=== PATIENT | female | born 1995 | race Two or more races ===

== ENCOUNTER 2017-02-07 09:37 | Emergency (ER) | payer OTHER ==
[~2017-02-07 09:37] MED LIST: ACET-704 PO; IBUP-1060 PO; LABE100T3; RANI300T3 PO
[2017-02-07 10:04] VITALS: BP 124/68
[2017-02-07] MEDS ORDERED: NAPR500T PO (10:06)
--- NOTE | 2017-02-07 10:07 | PHYS DOC ---
Past Medical History Past Medical History: Hypertension Additional Past Medical Histor: hypertension "while I was , but none now" Past Surgical History: Cholecystectomy, Tonsillectomy Alcohol Use: Occasionally Drug Use: None Adult General Chief Complaint Chief Complaint: HAND PROBLEM HPI HPI Patient is a 21 year old female presents to the emergency department with a one -month history of right wrist pain. She notes a small bump on the dorsal aspect of the wrist. She has no known injury. Denies loss of function or radiation of pain. Review of Systems Review of Systems Constitutional: Denies fever or chills [] Eyes: Denies change in visual acuity, redness, or eye pain [] HENT: Denies nasal congestion or sore throat [] Respiratory: Denies cough or shortness of breath [] Cardiovascular: No additional information not addressed in HPI [] GI: Denies abdominal pain, nausea, vomiting, bloody stools or diarrhea [] : Denies dysuria or hematuria [] Musculoskeletal: right wrist pain Integument: Denies rash or skin lesions [] Neurologic: Denies headache, focal weakness or sensory changes [] Endocrine: Denies polyuria or polydipsia [] Allergies Allergies Allergies Coded Allergies Type Severity Reaction Last Updated Verified No Known Drug Allergies 10/02/14 No Physical Exam Physical Exam Constitutional: Well developed, well nourished, no acute distress, non-toxic appearance. [] Skin: Warm, dry, no erythema, no rash. [] Extremities: Right wrist exam, ganglion cyst dorsal aspect. There is no erythema. No swelling. Right hand and right elbow exam unremarkable. Neurovascular intact distally. Muscle strength 5 over 5. EKG EKG [] Radiology/Procedures Radiology/Procedures [] Course & Med Decision Making Course & Med Decision Making Pertinent Labs and Imaging studies reviewed. (See chart for details) [] Dragon Disclaimer Dragon Disclaimer This electronic medical record was generated, in whole or in part, using a voice recognition dictation system. Departure Departure Impression: Primary Impression: Ganglion cyst of dorsum of right wrist Disposition: HOME, SELF-CARE Condition: STABLE Referrals: NO PCP (PCP) NEEL GARCIA MD Patient Instructions: Ganglion Cyst Scripts Naproxen (NAPROSYN) 500 Mg Tablet 1 TAB PO BID Y for PAIN, #20 TAB 1 Refill Prov: JAYLEN SEVILLA MATHEMATICAL STATISTICIAN 02/07/17 JAYLEN SEVILLA APRN Feb 07, 2017 10:07
== END 2017-02-07 10:14 | disposition home or self-care (01) ==
LOC: ER 09:37
DX: M67.431 Ganglion, right wrist (principal); I10 Essential (primary) hypertension; Z90.49 Acquired absence of other specified parts of digestive tract
CPT/HCPCS: 99282

== ENCOUNTER 2017-02-25 13:31 | Emergency (ER) | payer OTHER ==
[~2017-02-25] VITALS: Ht 147.3 cm; Wt 83.1 kg
[~2017-02-25 13:31] MED LIST changes: +NAPR500T PO
[2017-02-25 13:59] VITALS: BP 143/79
[2017-02-25] MEDS ORDERED: HYDROcodone/APAP 5/325MG 1 TAB TABLET PO ONE (14:30)
[2017-02-25] MEDS ORDERED: LIDOCAINE 2% TOPICAL JELLY 30GM TUBE. TP ONE (14:30)
[2017-02-25] MEDS ORDERED: TRAM-48 PO (14:42)
--- NOTE | 2017-02-25 14:42 | PHYS DOC ---
Past Medical History Past Medical History: Hypertension, Other Additional Past Medical Histor: hypertension "while I was , but none now" Past Surgical History: Cholecystectomy, Tonsillectomy Alcohol Use: Occasionally Drug Use: None Adult General Chief Complaint Chief Complaint: SEXUALLY TRANSMITTED DISEASE HPI HPI Patient is a 22 year old female who presents with pain on the labia that began 4 days ago after being diagnosed with herpes. Patient states she is currently on acyclovir and miconazole inserts. Patient states she would like something for pain. She states the pain is unbearable. Patient states her doctor did lab work but it will take 2 weeks before she gets results. Patient denies any new sexual contacts/concerns for STDs Review of Systems Review of Systems Constitutional: Denies fever or chills [] Eyes: Denies change in visual acuity, redness, or eye pain [] Musculoskeletal: Denies back pain or joint pain [] Integument: Vaginal pain due to vaginal herpes Neurologic: Denies headache, focal weakness or sensory changes [] Endocrine: Denies polyuria or polydipsia [] Current Medications Current Medications Current Medications Medications (Trade) Dose Ordered Sig/[facility] Start Time Stop Time Status Last Admin Dose Admin Acetaminophen/ Hydrocodone Bitart (Lortab 5/325) 1 tab 1X ONCE 02/25/17 14:30 02/25/17 14:31 DC 02/25/17 14:32 1 TAB Lidocaine HCl (Xylocaine 2% Topical 30gm Tube) 1 madina 1X ONCE 02/25/17 14:30 02/25/17 14:31 DC Allergies Allergies Allergies Coded Allergies Type Severity Reaction Last Updated Verified No Known Drug Allergies 10/02/14 No Physical Exam Physical Exam Constitutional: Well developed, well nourished, no acute distress, non-toxic appearance. [] HENT: Normocephalic, atraumatic, bilateral external ears normal, oropharynx moist, no oral exudates, nose normal. [] Skin: External bilateral labia with multiple open wounds suspicious of herpes. Back: No tenderness, no CVA tenderness. [] Extremities: No tenderness, no cyanosis, no clubbing, ROM intact, no edema. [] Neurologic: Alert and oriented X 3, normal motor function, normal sensory function, no focal deficits noted. [] Psychologic: Affect normal, judgement normal, mood normal. [] Current Patient Data Vital Signs Vital Signs Date Time Temp Pulse Resp B/P (MAP) Pulse Ox O2 Delivery O2 Flow Rate FiO2 02/25/17 14:32 18 Room Air 02/25/17 13:59 98.0 104 99 98.0 Lab Values Laboratory Tests Test 02/25/17 13:08 POC Urine HCG, Qualitative Hcg negative (Negative) EKG EKG [] Radiology/Procedures Radiology/Procedures [] Course & Med Decision Making Course & Med Decision Making Pertinent Labs and Imaging studies reviewed. (See chart for details) Patient is in the ED with pain due to vaginal herpes. She is currently not on acyclovir. She is also on miconazole inserts. We gave her lidocaine cream to be applied externally to the area. Given a prescription for Ultram as needed for pain. She is to follow-up with her own doctor in 1-2 weeks. Dragon Disclaimer Dragon Disclaimer This electronic medical record was generated, in whole or in part, using a voice recognition dictation system. Departure Departure Impression: Primary Impression: Herpes simplex virus (HSV) infection of vagina Disposition: HOME, SELF-CARE Condition: STABLE Referrals: NO PCP (PCP) Follow-up with your doctor in 1-2 weeks Patient Instructions: Genital Herpes Additional Instructions: You were seen for vaginal herpes. Continue using the medication you got from your primary care doctor/clinic. Apply the provided cream to the vaginal area every 3 hours as needed for pain. Take the prescribed pain medicines as needed. Scripts Tramadol Hcl (ULTRAM) 50 Mg Tablet 1 TAB PO Q6HRS, #30 TAB Prov: NUZHAT DEMPSEY APRN 02/25/17 NUZHAT DEMPSEY APRN Feb 25, 2017 14:42
== END 2017-02-25 15:05 | disposition home or self-care (01) ==
LOC: ER 13:31
DX: B00.1 Herpesviral vesicular dermatitis (principal); N76.0 Acute vaginitis; I10 Essential (primary) hypertension; Z90.49 Acquired absence of other specified parts of digestive tract
CPT/HCPCS: 81025; 99283

== ENCOUNTER 2018-09-12 16:30 | Emergency (ER) | payer OTHER ==
[~2018-09-12] VITALS: Ht 154.9 cm; Wt 88.5 kg
[~2018-09-12 16:30] MED LIST changes: -LABE100T3; +LABE100T5; +NAPR-683 PO; -NAPR500T PO; +TRAM-48 PO
[2018-09-12 17:20] LABS: BILIRUBIN,URINE NEGATIVE (NEG); CLARITY,URINE CLEAR; COLOR,URINE YELLOW; NITRITE,URINE NEGATIVE (NEG); PROTEIN,URINE NEGATIVE (NEG-TRACE); UROBILINOGEN,URINE 0.2 mg/dL (0.2 mg/dL)
[2018-09-12 17:26] LABS: RBC,URINE RARE /HPF (0-2)
[2018-09-12 17:27] LABS: BACTERIA,URINE MANY /HPF (0-FEW); SQUAMOUS EPITHELIAL CELL,UR MANY /LPF; WBC,URINE OCC /HPF (0-4)
[2018-09-12 17:30] LABS: BASO % 0 % (0-3); EOS % 0 % (0-3); HEMATOCRIT 39.8 % (36.0-47.0); HEMOGLOBIN 13.1 g/dL (12.0-15.5); LYMPH # 0.3 x10^3/uL (1.0-4.8); LYMPH % 6 % (24-48); MEAN CORPUSCULAR HEMOGLOBIN 27 pg (25-35); MEAN CORPUSCULAR HGB CONC 33 g/dL (31-37); MEAN CORPUSCULAR VOLUME 82 fL (79-100); MONO # 0.2 x10^3/uL (0.0-1.1); MONO % 4 % (0-9); NEUT # 5.1 x10^3uL (1.8-7.7); NEUT % 90 % (31-73); PLATELET COUNT 147 x10^3/uL (140-400); RED BLOOD COUNT 4.86 x10^6/uL (3.50-5.40); RED CELL DISTRIBUTION WIDTH 14.3 % (11.5-14.5); WHITE BLOOD COUNT 5.6 x10^3/uL (4.0-11.0)
[2018-09-12] MEDS ORDERED: ONDANSETRON PF 4 MG/2 ML VIAL. IV ONE (17:30)
[2018-09-12] MEDS ORDERED: fentaNYL PF VIAL 100 MCG/2 ML VIAL IV ONE (17:30)
[2018-09-12] MEDS ORDERED: IV NORMAL SALINE 1000ML BAG 1,000 ML IV ONE (17:30)
--- NOTE | 2018-09-12 17:33 | PHYS DOC ---
Past Medical History Past Medical History: Hypertension, Other Additional Past Medical Histor: hypertension "while I was , but none now" (KARSTEN REBOLLEDO APRN) Past Surgical History: Cholecystectomy, Tonsillectomy (KARSTEN REBOLLEDO APRN) Alcohol Use: Occasionally Drug Use: None (KARSTEN REBOLLEDO APRN) Adult General Chief Complaint Chief Complaint: ABDOMINAL PAIN HPI HPI Patient is a 23 year old female who presents with a 4:30 this morning she was awakened with dull umbilical abdominal pain that later in the day progressed to dull pain that starting to go to the right side. Patient states she is also having nausea and vomiting and cold chills. Patient states she took Aleve at 1300 today. (KARSTEN REBOLLEDO APRN) Review of Systems Review of Systems Constitutional: fever or chills [] Eyes: Denies change in visual acuity, redness, or eye pain [] HENT: Denies nasal congestion or sore throat [] Respiratory: Denies cough or shortness of breath [] Cardiovascular: No additional information not addressed in HPI [] GI: Umbilical abdominal pain, nausea, vomiting, denies bloody stools or diarrhea [] : Denies dysuria or hematuria [] Musculoskeletal: Denies back pain or joint pain [] Integument: Denies rash or skin lesions [] Neurologic: Denies headache, focal weakness or sensory changes [] All other systems were reviewed and found to be within normal limits, except as documented in this note. (KARSTEN REBOLLEDO APRN) Current Medications Current Medications Current Medications Medications (Trade) Dose Ordered Sig/[facility] Start Time Stop Time Status Last Admin Dose Admin Fentanyl Citrate (Fentanyl 2ml Vial) 50 mcg 1X ONCE 09/12/18 17:30 09/12/18 17:31 DC 09/12/18 17:33 50 MCG Iohexol (Omnipaque 240 Mg/ml) 30 ml 1X ONCE 09/12/18 17:45 09/12/18 17:46 DC Iohexol (Omnipaque 300 Mg/ml) 75 ml 1X ONCE 09/12/18 17:45 09/12/18 17:46 DC 09/12/18 18:12 75 ML Ondansetron HCl (Zofran) 4 mg 1X ONCE 09/12/18 17:30 1/30/19 17:31 DC 09/12/18 17:34 4 MG Sodium Chloride 1,000 ml @ 1,000 mls/hr 1X ONCE 09/12/18 17:30 09/12/18 18:29 (JAMES GRAHAMFRANCIS Mike APRN) Allergies Allergies Allergies Coded Allergies Type Severity Reaction Last Updated Verified No Known Drug Allergies 10/02/14 No (JAMES GRAHAMFRANCIS Mike APRN) Physical Exam Physical Exam Constitutional: Well developed, well nourished, no acute distress, non-toxic appearance. [] HENT: Normocephalic, atraumatic, bilateral external ears normal, oropharynx moist, no oral exudates, nose normal. [] Eyes: PERRLA, EOMI, conjunctiva normal, no discharge. [] Neck: Normal range of motion, no tenderness, supple, no stridor. [] Cardiovascular:Heart rate regular rhythm, no murmur [] Lungs & Thorax: Bilateral breath sounds clear to auscultation [] Abdomen: Bowel sounds normal, soft, umbilical and right lower quadrant tenderness, no masses, no pulsatile masses. [] Skin: Warm, dry, no erythema, no rash. [] Back: No tenderness, no CVA tenderness. [] Extremities: No tenderness, no cyanosis, no clubbing, ROM intact, no edema. [] Neurologic: Alert and oriented X 3, normal motor function, normal sensory function, no focal deficits noted. [] Psychologic: Affect normal, judgement normal, mood normal. [] (KARSTEN REBOLLEDO APRN) Current Patient Data Vital Signs Vital Signs Date Time Temp Pulse Resp B/P (MAP) Pulse Ox O2 Delivery O2 Flow Rate FiO2 09/12/18 17:01 100.1 128 20 134/58 (83) 98 Room Air 100.1 (MARY KATE GRAHAM Rashid WOOD) Lab Values Laboratory Tests Test 09/12/18 16:39 09/12/18 16:43 09/12/18 17:15 Urine Collection Type Unknown Urine Color Yellow Urine Clarity Clear Urine pH 6.0 Urine Specific [place] >=1.030 Urine Protein Negative mg/dL (NEG-TRACE) Urine Glucose (UA) Negative mg/dL (NEG) Urine Ketones (Stick) Negative mg/dL (NEG) Urine Blood Negative (NEG) Urine Nitrite Negative (NEG) Urine Bilirubin Negative (NEG) Urine Urobilinogen Dipstick 0.2 mg/dL (0.2 mg/dL) Urine Leukocyte Esterase Negative (NEG) Urine RBC Rare /HPF (0-2) Urine WBC Occ /HPF (0-4) Urine Squamous Epithelial Cells Many /LPF Urine Bacteria Many /HPF (0-FEW) Urine Mucus Marked /LPF POC Urine HCG, Qualitative Hcg negative (Negative) White Blood Count 5.6 x10^3/uL (4.0-11.0) Red Blood Count 4.86 x10^6/uL (3.50-5.40) Hemoglobin 13.1 g/dL (12.0-15.5) Hematocrit 39.8 % (36.0-47.0) Mean Corpuscular Volume 82 fL (79-100) Mean Corpuscular Hemoglobin 27 pg (25-35) Mean Corpuscular Hemoglobin Concent 33 g/dL (31-37) Red Cell Distribution Width 14.3 % (11.5-14.5) Platelet Count 147 x10^3/uL (140-400) Neutrophils (%) (Auto) 90 % (31-73) H Lymphocytes (%) (Auto) 6 % (24-48) L Monocytes (%) (Auto) 4 % (0-9) Eosinophils (%) (Auto) 0 % (0-3) Basophils (%) (Auto) 0 % (0-3) Neutrophils # (Auto) 5.1 x10^3uL (1.8-7.7) Lymphocytes # (Auto) 0.3 x10^3/uL (1.0-4.8) L Monocytes # (Auto) 0.2 x10^3/uL (0.0-1.1) Eosinophils # (Auto) 0.0 x10^3/uL (0.0-0.7) Basophils # (Auto) 0.0 x10^3/uL (0.0-0.2) Segmented Neutrophils % 89 % (35-66) H Lymphocytes % 10 % (24-48) L Monocytes % 1 % (0-10) Toxic Granulation Slight Toxic Vacuolation Slight Platelet Estimate Adequate (ADEQUATE) Sodium Level 141 mmol/L (136-145) Potassium Level 4.0 mmol/L (3.5-5.1) Chloride Level 102 mmol/L (98-107) Carbon Dioxide Level 27 mmol/L (21-32) Anion Gap 12 (6-14) Blood Urea Nitrogen 13 mg/dL (7-20) Creatinine 0.7 mg/dL (0.6-1.0) Estimated GFR (Cockcroft-Gault) 103.7 BUN/Creatinine Ratio 19 (6-20) Glucose Level 102 mg/dL (70-99) H Calcium Level 9.0 mg/dL (8.5-10.1) Total Bilirubin 0.4 mg/dL (0.2-1.0) Aspartate Amino Transferase (AST) 20 U/L (15-37) Alanine Aminotransferase (ALT) 49 U/L (14-59) Alkaline Phosphatase 126 U/L (46-116) H Total Protein 7.8 g/dL (6.4-8.2) Albumin 3.8 g/dL (3.4-5.0) Albumin/Globulin Ratio 1.0 (1.0-1.7) Laboratory Tests 09/12/18 17:15 Laboratory Tests 09/12/18 17:15 (MARY KATE GRAHAM APRN) EKG EKG [] (KRASTEN REBOLLEDO APRN) Radiology/Procedures Radiology/Procedures CT abdomen pelvis (KARSTEN REBOLLEDO APRN) Radiology/Procedures PATIENT: HANNAH BALL VACCOUNT: [id number]#: [id number] : 1995 LOCATION: ER AGE: 23 SEX: F EXAM STATUS: REG ER ORD. PHYSICIAN: KARSTEN REBOLLEDO APRN REASON: abdominal pain PROCEDURE: CT ABD PELV W/ IV CONTRST ONLY PQRS Compliance statement: One or more of the following individualized dose reduction techniques were utilized for this examination: 1. Automated exposure control. 2. Adjustment of the mA and/or kV according to patient size. 3. Use of iterative reconstruction technique. Indication:Umbilical ABD PAIN X THIS AM MOVING TO R SIDE N/V INJ 75ML OMNI 300 NO PREV TECHNIQUE: CT abdomen and pelvis with IV contrast with multiplanar reformats. COMPARISON: None FINDINGS: Heart is normal in size. No pericardial or pleural effusion. Clear lung bases. Liver, spleen, pancreas, adrenals within normal limits. Status post cholecystectomy. No nephrolithiasis or hydronephrosis. No enlarged retroperitoneal or pelvic adenopathy. No free pelvic fluid or ascites. No bowel obstruction. Normal appendix. No pneumoperitoneum. Retroverted uterus. Urinary bladder demonstrates no radiopaque stones. No suspicious bony lesion. IMPRESSION: No acute findings. Electronically signed by: Ankit Mcdaniel DO (09/12/2018 6:19 PM) [facility] DICTATED and SIGNED BY: ANKIT MCDANIEL DO DATE: 09/12/181816 (MARY KATE GRAHAM APRN) Course & Med Decision Making Course & Med Decision Making Patient is a 23 year old female who presents with a 4:30 this morning she was awakened with dull umbilical abdominal pain that later in the day progressed to dull pain that starting to go to the right side. Patient states she is also having nausea and vomiting and cold chills. Patient states she took Aleve at 1300 today. Alert and oriented. Skin pink warm and dry. Mucous membranes are moist. Lungs are clear to auscultation all lobes. Abdomen is tender at umbilical cord area and at the right lower quadrant area. Abdomen is soft and there are no masses felt. Positive Rojas's sign. She has tachycardia at 102. Temperature is 100.1. 1800: Patient signed off to Mary Kate Graham APRN. (KARSTEN REBOLLEDO APRN) Dragon Disclaimer Dragon Disclaimer This electronic medical record was generated, in whole or in part, using a voice recognition dictation system. (KARSTEN REBOLLEDO APRN) Departure Departure Impression: Primary Impression: Nausea & vomiting Additional Impression: Abdominal pain Disposition: HOME, SELF-CARE Condition: STABLE Referrals: NO PCP (PCP) Patient Instructions: Abdominal Pain (Nonspecific), Nausea and Vomiting Additional Instructions: Take the medication as prescribed. Increase fluids and rest. Follow-up with your primary care provider if not improving in 3 days or return to the emergency department if worsening. Scripts Ondansetron (ONDANSETRON ODT) 4 Mg Tab.rapdis 1 TAB PO PRN Q6-8HRS for nausea, #16 TAB Prov: MARY KATE GRAHAM APRN 09/12/18 Problem Qualifiers KARSTEN REBOLLEDO APRN Sep 12, 2018 17:33 MARY KATE GRAHAM APRN Sep 12, 2018 18:30
[2018-09-12 17:37] LABS: CREATININE 0.7 mg/dL (0.6-1.0); GFR 103.7
[2018-09-12 17:43] LABS: ALBUMIN 3.8 g/dL (3.4-5.0); TOTAL BILIRUBIN 0.4 mg/dL (0.2-1.0); TOTAL PROTEIN 7.8 g/dL (6.4-8.2)
[2018-09-12] MEDS ORDERED: IOHEXOL 300 MG/ML 100ML VIAL. IV ONE (17:45)
[2018-09-12] MEDS ORDERED: IOHEXOL 240 MG/ML 50ML VIAL. PO ONE (17:45)
[2018-09-12 17:48] LABS: % LYMPHS 10 % (24-48); % MONOS 1 % (0-10); % SEGS 89 % (35-66)
[2018-09-12 17:51] LABS: PLT ESTIMATE ADEQUATE (ADEQUATE); TOXIC GRANULATION SLIGHT; TOXIC VACUOLATION SLIGHT
[2018-09-12 18:00] VITALS: BP 130/65
--- NOTE | 2018-09-12 18:23 | RAD ---
PQRS Compliance statement: One or more of the following individualized dose reduction techniques were utilized for this examination: 1. Automated exposure control. 2. Adjustment of the mA and/or kV according to patient size. 3. Use of iterative reconstruction technique. Indication:Umbilical ABD PAIN X THIS AM MOVING TO R SIDE N/V INJ 75ML OMNI 300 NO PREV TECHNIQUE: CT abdomen and pelvis with IV contrast with multiplanar reformats. COMPARISON: None FINDINGS: Heart is normal in size. No pericardial or pleural effusion. Clear lung bases. Liver, spleen, pancreas, adrenals within normal limits. Status post cholecystectomy. No nephrolithiasis or hydronephrosis. No enlarged retroperitoneal or pelvic adenopathy. No free pelvic fluid or ascites. No bowel obstruction. Normal appendix. No pneumoperitoneum. Retroverted uterus. Urinary bladder demonstrates no radiopaque stones. No suspicious bony lesion. IMPRESSION: No acute findings. Electronically signed by: Ankit Mcdaniel DO (09/12/2018 6:19 PM) [facility]
[2018-09-12] MEDS ORDERED: ONDA4TAB12 PO (18:30)
== END 2018-09-12 18:45 | disposition home or self-care (01) ==
LOC: ER 16:30
DX: R10.33 Periumbilical pain (principal); R10.31 Right lower quadrant pain; R11.2 Nausea with vomiting, unspecified; R50.9 Fever, unspecified; I10 Essential (primary) hypertension; Z90.49 Acquired absence of other specified parts of digestive tract
CPT/HCPCS: 36415; 74177; 80053; 81001; 81025; 85007; 85025; 87086; 96374; 96375; 99284; J2405; J3010; Q9967